=== PATIENT | female | born 1970 ===

== ENCOUNTER 2017-04-19 20:04 | Inpatient (IN) | payer MEDICAID ==
[2017-04-19 20:04] VITALS: BMI 43.0
[2017-04-19] MEDS ORDERED: Sodium Chloride 0.9% 1,000 ML IV ONE (20:28)
--- NOTE | 2017-04-19 20:31 | C.PDOC ---
History Of Present Illness Patient is a 47 y/o female that presents to the emergency department for evaluation of RUQ abdominal pain associated with nausea, and vomiting for the last 2 days. Patient states that she was scheduled for gallbladder surgery but surgery was delayed. Otherwise, denies fever, or any other complaints at this time. Time Seen by Provider: 04/19/17 20:11 Chief Complaint (Nursing): Abdominal Pain History Per: Patient History/Exam Limitations: no limitations Current Symptoms Are (Timing): Still Present Location Of Pain/Discomfort: RUQ Radiation Of Pain To:: None Quality Of Discomfort: "Pain" Associated Symptoms: Nausea, Vomiting. denies: Fever, Chills, Diarrhea, Loss Of Appetite, Back Pain, Chest Pain, Constipation, Urinary Symptoms Exacerbating Factors: None Alleviating Factors: None Recent travel outside of the [place]: No Additional History Per: Patient Abnormal Vaginal Bleeding: No Past Medical History Reviewed: Historical Data, Nursing Documentation, Vital Signs Vital Signs: Last Vital Signs Temp 98.6 F 04/19/17 20:07 Pulse 86 04/19/17 20:07 Resp 16 04/19/17 20:07 BP 118/78 04/19/17 20:07 Pulse Ox 98 04/19/17 20:39 - Medical History PMH: Asthma (When she was young.), Bronchitis (3 years ago.), Hypercholesterolemia, Hypothyroidism Denies: Depression, Chronic Kidney Disease - [facility] Procedures INJECT/INFUSE ELECTROLYT (11/22/13) INJECT/INFUSE NEC (11/22/13) Family History: States: Unknown Family Hx - Social History Hx Tobacco Use: Yes Hx Alcohol Use: Yes (OCCASIONALLY) Hx Substance Use: No - Immunization History Hx Tetanus Toxoid Vaccination: No Hx Influenza Vaccination: No Review Of Systems Except As Marked, All Systems Reviewed And Found Negative. Constitutional: Negative for: Fever, Chills Gastrointestinal: Positive for: Nausea, Vomiting, Abdominal Pain. Negative for : Diarrhea, Constipation, Hematemesis Genitourinary: Negative for: Dysuria, Frequency, Hematuria Musculoskeletal: Negative for: Back Pain Skin: Negative for: Rash Physical Exam - Physical Exam Appears: Non-toxic, No Acute Distress, Other (morbidly obese) Skin: Normal Color, Warm, Dry Head: Atraumatic, Normacephalic Eye(s): bilateral: Normal Inspection Neck: Normal ROM, Supple Chest: Symmetrical Cardiovascular: Rhythm Regular, No Murmur Respiratory: Normal Breath Sounds, No Rales, No Rhonchi, No Wheezing Gastrointestinal/Abdominal: Soft, Tenderness (RUQ), No Guarding, No Rebound Extremity: Bilateral: Atraumatic, Normal ROM Neurological/Psych: Oriented x3, Normal Speech, Normal Cognition ED Course And Treatment - Laboratory Results Result Diagrams: 04/19/17 20:37 04/19/17 20:37 O2 Sat by Pulse Oximetry: 98 Pulse Ox Interpretation: Normal Progress Note: Blood work, urinalysis, abdomen ultrasound ordered and reviewed. Patient was treated with Morphine, Zofran, and IV fluids. Medical Decision Making Medical Decision Making: r/o cholecystitsi- labs imaging pendign 945: us shows wall thickening. noted luekocytosis. suspect acute jing. discussed withjaun zapata. resident advisor paged. states will discuss with dr velasquez. ara dosed. dr colon on blue list, advises to admit under dr woods (dr colon advises that he will update dr woods) Disposition - Disposition Disposition: HOSPITALIZED Disposition Time: 21:45 Condition: STABLE - Clinical Impression Clinical Impression: Cholecystitis - Scribe Statement The provider has reviewed the documentation as recorded by the Scribe Yasir English All medical record entries made by the Scribe were at my direction and personally dictated by me. I have reviewed the chart and agree that the record accurately reflects my personal performance of the history, physical exam, medical decision making, and the department course for this patient. I have also personally directed, reviewed, and agree with the discharge instructions and disposition. Decision To Admit - Pt Status Changed To: Hospital Disposition Of: Inpatient - Admit Certification Admit to Inpatient:: After my assessment, the patient will require hospitalization for at least two midnights. This is because of the severity of symptoms shown, intensity of services needed, and/or the medical risk in this patient being treated as an outpatient. - InPatient: Physician Admission Certification:: acute jing, needs or - . Bed Request Type: Regular Admitting Physician: José Miguel Woods Patient Diagnosis: Cholecystitis
[2017-04-19] MEDS ORDERED: Sodium Chloride 0.9% 1,000 ML ONE (20:35)
[2017-04-19] MEDS ORDERED: Morphine 4 MG/ML VIAL ONE (20:35)
[2017-04-19 20:43] LABS: BASO # 0.1 K/uL (0.0-0.2); BASO % 0.5 % (0.0-2.0); EOS # 0.5 K/uL (0.0-0.7); EOS % 3.6 % (0.0-4.0); HEMOGLOBIN 12.1 g/dL (11.0-16.0); LYMPH # 2.5 K/uL (1.0-4.3); LYMPH % 18.4 % (20.0-40.0); MEAN CELL VOLUME 74.7 fL (81.0-99.0); MEAN CORPUSCULAR HEMOGLOBIN 23.7 pg (27.0-31.0); MEAN CORPUSCULAR HGB CONC 31.8 g/dL (33.0-37.0); MEAN PLATELET VOLUME 7.9 fL (7.2-11.7); MONO # 0.9 K/uL (0.0-0.8); MONO % 6.3 % (0.0-10.0); NEUT # 9.7 K/uL (1.8-7.0); NEUT % 71.2 % (50.0-75.0); RBC 5.09 Mil/uL (3.80-5.20); RED CELL DISTRIBUTION WIDTH 17.4 % (11.5-14.5); WHITE BLOOD COUNT 13.6 K/uL (4.8-10.8)
[2017-04-19 20:51] LABS: ALBUMIN 4.3 g/dL (3.5-5.0); INR 1.2; PROTHROMBIN TIME 13.6 SECONDS (9.7-12.2)
[2017-04-19 20:53] LABS: GFR AFRICAN-AMERICAN > 60; GFR NON-AFRICAN AMERICAN > 60
[2017-04-19 20:54] LABS: ALT/SGPT 27 U/L (9-52); AST/SGOT 20 U/L (14-36); BLOOD UREA NITROGEN 15 mg/dL (7-17); CALCIUM 9.7 mg/dl (8.6-10.4); LIPASE 51 U/L (23-300)
[2017-04-19 20:57] LABS: HCG,QUALITATIVE URINE NEGATIVE (NEGATIVE)
[2017-04-19 20:59] LABS: SQUAMOUS EPITHIAL 7 /hpf (0-5); URINE AMORPHOUS SEDIMENT RARE /ul (<OCC); URINE BACTERIA OCC (<OCC); URINE BILIRUBIN NEGATIVE (NEGATIVE); URINE BLOOD 1+ (NEGATIVE); URINE CLARITY Hazy (Clear); URINE COLOR Yellow (YELLOW); URINE GLUCOSE (UA) NORMAL (Normal); URINE NITRATE NEGATIVE (NEGATIVE); URINE PROTEIN 1+ mg/dL (NEGATIVE); URINE UROBILINOGEN NORMAL mg/dL (0.2-1.0)
[2017-04-19 21:00] LABS: URINE LEUKOCYTE ESTERASE NEGATIVE Leu/uL (Negative)
--- NOTE | 2017-04-19 21:38 | US ---
EXAM: US Abdomen Complete CLINICAL HISTORY: 47 years old, female; Pain; Abdominal pain; Other: Ruq pain; Additional info: Abd pain TECHNIQUE: Real-time ultrasound of the abdomen (complete) with image documentation. COMPARISON: No relevant prior studies available. FINDINGS: Liver: Fatty infiltration. No mass. No intrahepatic ductal dilatation. Gallbladder: Gallstone. Up to 0.37 cm wall thickness. No pericholecystic fluid. No sonographic Peterson's sign. Common bile duct: No dilatation. No stones. Pancreas: Unremarkable as visualized. Kidneys: Normal echogenicity. No hydronephrosis. Spleen: No splenomegaly. Aorta: Unremarkable as visualized. No aneurysm. Inferior vena cava: Unremarkable. IMPRESSION: 1. Cholelithiasis with mild gallbladder wall thickening. Clinical correlation is needed. 2. Incidental/non-acute findings are described above.
[2017-04-19] MEDS ORDERED: Piperacillin/Tazobact 3.375 gm 100 ML IVPB STA (21:39)
[2017-04-19] MEDS ORDERED: Piperacillin/Tazobact 3.375 gm 100 ML IVPB ONE (22:10)
[2017-04-19] MEDS ORDERED: HYDROmorphone 1 mg/ml ISec IVP PRN (22:11)
[2017-04-19] MEDS ORDERED: Albuterol HFA 90 mcg/actuation (8 g) IH PRN (22:20)
[2017-04-19] MEDS ORDERED: Albuterol 0.083% Inhal Sol (2.5 mg/3 mL) UD IH PRN (22:20)
[2017-04-19] MEDS: Sodium Chloride 0.45% 1,000 ML IV SCH (22:44)
--- NOTE | 2017-04-19 23:10 | CP.PCM.CON ---
History of Present Illness - History of Present Illness History of Present Illness: Surgery Consult note. Dr. Gibson CC: Abdominal Pain 47yo F with PMHx of Hypothyroid, HLD, DM, Asthma here for evaluation of abdominal pain. Patient states that she has had similar abdominal pain in the past for the past year, off and on, however, this episode has been the most severe. Pain is described as sharp, located in the RUQ, radiates to left upper abdomen, left breast and left middle back. This episode has been ongoing for the past 4 days, progressively worsening. She also c/o subjective fevers and chills at home. Pain is worse with food intake (Burger/Meat) and is associated with nausea and vomiting (non bilious, non bloody). She states that she last ate food 2 hours prior to arrival to the [facility] ED. She denies any urinary symptoms. No CP/SOB. No Headache. No changes in bowel habits. Of note, She was seen at [facility] for similar complaints on 04/13. At that time, she obtained a Abd US which showed large gallstone, no pericholecystic fluid. She also obtained a HIDA at that time with no evidence of cystic duct obstruction. She was asked to follow up with Dr. Townsend for elective outpatient cholecystectomy. PMHx: Hypothyroidism, HLD, DM, Asthma PSHx: x2; Partial removal of cervix due abnormal PAP Family Hx: CAD/OR maternal grandmother Social Hx: Former tobacco use, quit 1 year ago. Rare ETOH use. Denies illicit drug use. Currently unemployed NKDA Review of Systems - Review of Systems All systems: reviewed and no additional remarkable complaints except - Constitutional Constitutional: Chills, Fever - EENT Eyes: absent: Change in Vision Ears: absent: Dizziness - Cardiovascular Cardiovascular: absent: Chest Pain, Dyspnea - Respiratory Respiratory: absent: Cough - Gastrointestinal Gastrointestinal: Abdominal Pain, Nausea, Vomiting. absent: Diarrhea - Genitourinary Genitourinary: absent: Dysuria - Musculoskeletal Musculoskeletal: Back Pain - Neurological Neurological: absent: Dizziness, Weakness Past Patient History - Infectious Disease Hx of Infectious Diseases: None - Tetanus Immunizations Tetanus Immunization: Unknown - Past Medical History & Family History Past Medical History?: Yes Past Family History: Reviewed and not pertinent - Past Social History Smoking Status: Former Smoker - CARDIAC Hx Hypercholesterolemia: Yes - PULMONARY Hx Asthma: Yes (When she was young.) Hx Bronchitis: Yes (3 years ago.) - NEUROLOGICAL Hx Neurological Disorder: No - HEENT Hx HEENT Problems: No - RENAL Hx Chronic Kidney Disease: No - ENDOCRINE/METABOLIC Hx Hypothyroidism: Yes - HEMATOLOGICAL/ONCOLOGICAL Hx Blood Transfusions: No - INTEGUMENTARY Hx Dermatological Problems: No - MUSCULOSKELETAL/RHEUMATOLOGICAL Hx Back Pain: Yes (Low back pain.) Hx Falls: No - GASTROINTESTINAL Hx Gastrointestinal Disorders: Yes Hx Gastroesophageal Reflux: Yes - GENITOURINARY/GYNECOLOGICAL Hx Genitourinary Disorders: No - PSYCHIATRIC Hx Depression: No Hx Substance Use: No - SURGICAL HISTORY Hx Surgeries: No - ANESTHESIA Hx Anesthesia Reactions: No Hx Malignant Hyperthermia: No Meds Allergies/Adverse Reactions: Allergies Allergy/AdvReac Type Severity Reaction Status Date / Time No Known Allergies Allergy Verified 04/19/17 20:10 - Medications Medications: Current Medications Albuterol (Ventolin Hfa 90 Mcg/Actuation (8 G)) 2 puff IH RQ6 PRN PRN Reason: SOB Albuterol Sulfate (Albuterol 0.083% Inhal Homa (2.5 Mg/3 Ml) Ud) 2.5 mg IH RQ6 PRN PRN Reason: Wheezing Hydromorphone HCl (Dilaudid) 1 mg IVP Q4H PRN PRN Reason: Pain, moderate (4-7) Piperacillin Sod/Tazobactam (Sod 3.375 gm/ Sodium Chloride) 100 mls @ 200 mls/ hr IVPB Q6H [facility] Sodium Chloride (Sodium Chloride 0.45%) 1,000 mls @ 60 mls/hr IV .[id number] [facility] Last Admin: 04/19/17 22:44 Dose: 60 mls/hr Insulin Aspart (Novolog) 0 unit SC ACHS [facility] PRN Reason: Protocol Ondansetron HCl (Zofran Inj) 4 mg IVP Q4 PRN PRN Reason: nausea and vomiting Rosuvastatin Calcium (Crestor) 20 mg PO HS [facility] Physical Exam - Constitutional Appears: Well, No Acute Distress - Head Exam Head Exam: ATRAUMATIC, NORMAL INSPECTION, NORMOCEPHALIC - Eye Exam Eye Exam: EOMI - ENT Exam ENT Exam: Mucous Membranes Moist - Respiratory Exam Respiratory Exam: NORMAL BREATHING PATTERN - GI/Abdominal Exam GI & Abdominal Exam: Soft. absent: Distended, Firm, Guarding, Mass, Rebound, Rigid Additional comments: RUQ tenderness to deep palpation. Negative Peterson's sign. No distention, no rebound, no guarding. - Extremities Exam Extremities exam: Positive for: normal inspection. Negative for: calf tenderness, pedal edema - Neurological Exam Neurological exam: Alert, Oriented x3 - Psychiatric Exam Psychiatric exam: Normal Affect, Normal Mood - Skin Skin Exam: Dry, Intact, Normal Color, Warm Results - Vital Signs Recent Vital Signs: Last Vital Signs Temp 98.8 F 04/19/17 22:54 Pulse 89 04/19/17 22:54 Resp 20 04/19/17 22:54 BP 114/58 L 04/19/17 22:54 Pulse Ox 97 04/19/17 22:54 - Labs Result Diagrams: 04/19/17 20:37 04/19/17 20:37 Assessment & Plan - Assessment and Plan (Free Text) Assessment: 47yo F with PMHx of Hypothyroidism, HLD, DM, Asthma here with symptomatic cholelithiasis - Abd US: Large Gallstone at GB neck. GB wall 0.37cm. No pericholecystic fluid - NPO past midnight - Pain management - Continue Abx/IVF - f/u AM labs - To OR Tuesday (04/20) Further recs as per Dr. Arthur Townsend PGY1
[2017-04-19] MEDS: Piperacillin/Tazobact 3.375 GM in Sodium Chloride 100 ML IVPB SCH (23:50)
[2017-04-20] MEDS: Piperacillin/Tazobact 3.375 GM in Sodium Chloride 100 ML IVPB SCH ×4 (04:36→23:16)
[2017-04-20] MEDS: Morphine 4 MG/ML VIAL IVP PRN ×2 (07:01→11:29)
[2017-04-20 07:20] LABS: BASO % 0.4 % (0.0-2.0); EOS # 0.5 K/uL (0.0-0.7); EOS % 4.3 % (0.0-4.0); HEMOGLOBIN 10.6 g/dL (11.0-16.0); LYMPH # 2.2 K/uL (1.0-4.3); MEAN CORPUSCULAR HEMOGLOBIN 23.5 pg (27.0-31.0); MEAN CORPUSCULAR HGB CONC 30.9 g/dL (33.0-37.0); MEAN PLATELET VOLUME 8.2 fL (7.2-11.7); MONO # 0.9 K/uL (0.0-0.8); NEUT # 7.9 K/uL (1.8-7.0); NEUT % 68.3 % (50.0-75.0); RBC 4.51 Mil/uL (3.80-5.20); WHITE BLOOD COUNT 11.6 K/uL (4.8-10.8)
[2017-04-20 07:29] LABS: ALBUMIN 3.7 g/dL (3.5-5.0)
[2017-04-20 07:32] LABS: AST/SGOT 29 U/L (14-36); GFR AFRICAN-AMERICAN > 60; GFR NON-AFRICAN AMERICAN > 60
[2017-04-20 07:33] LABS: ALB/GLOB RATIO 1.1 (1.0-2.1); ALT/SGPT 37 U/L (9-52); BLOOD UREA NITROGEN 13 mg/dL (7-17)
--- NOTE | 2017-04-20 08:40 | RAD ---
HISTORY: preop COMPARISON: No prior. FINDINGS: LUNGS: No focal infiltrate or effusion. Mild venous congestion. Right infrahilar prominence may represent prominent vasculature. PLEURA: No significant pleural effusion identified, no pneumothorax apparent. CARDIOVASCULAR: Normal. OSSEOUS STRUCTURES: No significant abnormalities. VISUALIZED UPPER ABDOMEN: Normal. OTHER FINDINGS: None. IMPRESSION: No focal infiltrate or effusion. Mild venous congestion. Right infrahilar prominence may represent prominent vasculature.
[2017-04-20] MEDS: (Novolog) Insulin Aspart, Recombinant 100 u/ml 10 ml vial SC SCH ×4 (08:49→21:02)
--- NOTE | 2017-04-20 09:29 | CP.PCM.CON ---
History of Present Illness - History of Present Illness History of Present Illness: CC RUQ pain HPI Patient is a 47 y/o female that presents to the emergency department for evaluation of RUQ abdominal pain associated with nausea, and vomiting for the last 2 days. Patient states that she was scheduled for gallbladder surgery but surgery was delayed. Otherwise, denies fever, or any other complaints at this time. Review of Systems - Gastrointestinal Gastrointestinal: Abdominal Pain, Vomiting Past Patient History - Infectious Disease Hx of Infectious Diseases: None - Tetanus Immunizations Tetanus Immunization: Unknown - Past Medical History & Family History Past Medical History?: Yes Past Family History: Reviewed and not pertinent - Past Social History Smoking Status: Former Smoker - CARDIAC Hx Hypercholesterolemia: Yes - PULMONARY Hx Asthma: Yes (When she was young.) Hx Bronchitis: Yes (3 years ago.) - NEUROLOGICAL Hx Neurological Disorder: No - HEENT Hx HEENT Problems: No - RENAL Hx Chronic Kidney Disease: No - ENDOCRINE/METABOLIC Hx Hypothyroidism: Yes - HEMATOLOGICAL/ONCOLOGICAL Hx Blood Transfusions: No - INTEGUMENTARY Hx Dermatological Problems: No - MUSCULOSKELETAL/RHEUMATOLOGICAL Hx Back Pain: Yes (Low back pain.) Hx Falls: No - GASTROINTESTINAL Hx Gastrointestinal Disorders: Yes Hx Gastroesophageal Reflux: Yes - GENITOURINARY/GYNECOLOGICAL Hx Genitourinary Disorders: No - PSYCHIATRIC Hx Depression: No Hx Substance Use: No - SURGICAL HISTORY Hx Surgeries: No - ANESTHESIA Hx Anesthesia Reactions: No Hx Malignant Hyperthermia: No Meds Allergies/Adverse Reactions: Allergies Allergy/AdvReac Type Severity Reaction Status Date / Time No Known Allergies Allergy Verified 04/19/17 20:10 - Medications Medications: Current Medications Albuterol (Ventolin Hfa 90 Mcg/Actuation (8 G)) 2 puff IH RQ6 PRN PRN Reason: SOB Albuterol Sulfate (Albuterol 0.083% Inhal Homa (2.5 Mg/3 Ml) Ud) 2.5 mg IH RQ6 PRN PRN Reason: Wheezing Piperacillin Sod/Tazobactam (Sod 3.375 gm/ Sodium Chloride) 100 mls @ 200 mls/ hr IVPB Q6H [facility] Last Admin: 04/20/17 04:36 Dose: 200 mls/hr Sodium Chloride (Sodium Chloride 0.45%) 1,000 mls @ 60 mls/hr IV .[id number] [facility] Last Admin: 04/19/17 22:44 Dose: 60 mls/hr Insulin Aspart (Novolog) 0 unit SC ACHS [facility] PRN Reason: Protocol Last Admin: 04/20/17 08:49 Dose: Not Given Morphine Sulfate (Morphine) 4 mg IVP Q4 PRN PRN Reason: Pain, moderate (4-7) Last Admin: 04/20/17 07:01 Dose: 4 mg Ondansetron HCl (Zofran Inj) 4 mg IVP Q4 PRN PRN Reason: nausea and vomiting Pneumococcal Polyvalent Vaccine (Pneumovax 23 Vaccine) 0.5 ml IM .ONCE ONE Stop: 04/22/17 10:01 Rosuvastatin Calcium (Crestor) 20 mg PO HS [facility] Physical Exam - Head Exam Head Exam: NORMAL INSPECTION - Eye Exam Eye Exam: absent: Scleral icterus - ENT Exam ENT Exam: Mucous Membranes Moist - Neck Exam Neck exam: Positive for: Full Rom - Respiratory Exam Respiratory Exam: NORMAL BREATHING PATTERN - Cardiovascular Exam Cardiovascular Exam: REGULAR RHYTHM - GI/Abdominal Exam GI & Abdominal Exam: Soft. absent: Tenderness - Extremities Exam Extremities exam: Negative for: calf tenderness, pedal edema, tenderness Results - Vital Signs Recent Vital Signs: Last Vital Signs Temp 98.1 F 04/20/17 08:02 Pulse 79 04/20/17 08:02 Resp 20 04/20/17 08:02 BP 115/69 04/20/17 08:02 Pulse Ox 95 04/20/17 08:02 - Labs Result Diagrams: 04/20/17 07:01 04/20/17 07:01 Labs: Laboratory Results - last 24 hr 04/19/17 04/20/17 04/20/17 22:40 03:00 07:01 WBC 11.6 H RBC 4.51 Hgb 10.6 L Hct 34.3 MCV 76.0 L MCH 23.5 L MCHC 30.9 L RDW 18.0 H Plt Count 414 H MPV 8.2 Neut % (Auto) 68.3 Lymph % (Auto) 19.0 L [place] % (Auto) 8.0 Eos % (Auto) 4.3 H Baso % (Auto) 0.4 Neut # 7.9 H Lymph # 2.2 [place] # 0.9 H Eos # 0.5 Baso # 0.0 Sodium Potassium Chloride Carbon Dioxide Anion Gap BUN Creatinine Est GFR ( Amer) Est GFR (Non-Af Amer) POC Glucose (mg/dL) 117 H 97 Random Glucose Calcium Total Bilirubin AST ALT Alkaline Phosphatase Total Protein Albumin Globulin Albumin/Globulin Ratio 04/20/17 04/20/17 07:01 07:04 WBC RBC Hgb Hct MCV MCH MCHC RDW Plt Count MPV Neut % (Auto) Lymph % (Auto) [place] % (Auto) Eos % (Auto) Baso % (Auto) Neut # Lymph # [place] # Eos # Baso # Sodium 140 Potassium 4.1 Chloride 101 Carbon Dioxide 26 Anion Gap 17 BUN 13 Creatinine 0.8 Est GFR ( Amer) > 60 Est GFR (Non-Af Amer) > 60 POC Glucose (mg/dL) 97 Random Glucose 91 Calcium 9.0 Total Bilirubin 0.7 AST 29 ALT 37 Alkaline Phosphatase 122 Total Protein 7.0 Albumin 3.7 Globulin 3.4 Albumin/Globulin Ratio 1.1 Assessment & Plan - Assessment and Plan (Free Text) Assessment: Cholelithiasis w/ Acute cholecystitis T2dm Plan: Pt is medically clear to go cholecystectomy
--- NOTE | 2017-04-20 12:12 | CARD ---
APPROVED REPORT EKG Measurement Heart [id number] <Conclusion> Normal sinus rhythm Normal ECG
--- NOTE | 2017-04-20 12:15 | CP.PCM.HP ---
History of Present Illness - History of Present Illness History of Present Illness: Patient is a 47 y/o female that presents to the emergency department for evaluation of RUQ abdominal pain associated with nausea, and vomiting for the last 2 days. Patient states that she was scheduled for gallbladder surgery but surgery was delayed. Otherwise, denies fever, or any other complaints at this time. - Medical History PMH: Asthma (When she was young.), Bronchitis (3 years ago.), Hypercholesterolemia, Hypothyroidism Denies: Depression, Chronic Kidney Disease Present on Admission - Present on Admission Any Indicators Present on Admission: No History of DVT/PE: No History of Uncontrolled Diabetes: No Urinary Catheter: No Decubitus Ulcer Present: No History Surgical Site Infection Following: None Review of Systems - Review of Systems All systems: reviewed and no additional remarkable complaints except - Constitutional Constitutional: As Per HPI - EENT Eyes: absent: As Per HPI, Blind Spots, Blurred Vision, Change in Vision, Decreased Night Vision, Diplopia, Discharge, Dry Eye, Exophthalmos, Floaters, Irritation, Itchy Eyes, Loss of Peripheral Vision, Pain, Photophobia, Requires Corrective Lenses, Sees Flashes, Spots in Vision, Tunnel Vision, Other Visual Disturbances, Loss of Vision, Other Ears: absent: As Per HPI, Decreased Hearing, Ear Discharge, Ear Pain, Tinnitus, Abnormal Hearing, Disequilibrium, Dizziness, Other Nose/Mouth/Throat: absent: As Per HPI, Epistaxis, Nasal Congestion, Nasal Discharge, Nasal Obstruction, Nasal Trauma, Nose Pain, Post Nasal Drip, Sinus Pain, Sinus Pressure, Bleeding Gums, Change in Voice, Dental Pain, Dry Mouth, Dysphagia, Halitosis, Hoarsness, Lip Swelling, Mouth Lesions, Mouth Pain, Odynophagia, Sore Throat, Throat Swelling, Tongue Swelling, Facial Pain, Neck Pain, Neck Mass, Other - Breasts Breasts: absent: As Per HPI, Change in Shape, Mass, Pain, Nipple Discharge, Nipple Inversion, Skin Changes, Swelling, Other - Cardiovascular Cardiovascular: absent: As Per HPI, Acrocyanosis, Chest Pain, Chest Pain at Rest , Chest Pain with Activity, Claudication, Diaphoresis, Dyspnea, Dyspnea on Exertion, Edema, Irregular Heart Rhythm, Pain Radiating to Arm/Neck/Jaw, Leg Edema, Leg Ulcers, Lightheadedness, Orthopnea, Palpitations, Paroxysmal Nocturnal Dyspnea, Pedal Edema, Radiating Pain, Rapid Heart Rate, Slow Heart Rate, Syncope, Other - Respiratory Respiratory: absent: As Per HPI, Cough, Dyspnea, Hemoptysis, Dyspnea on Exertion , Wheezing, Snoring, Stridor, Pain on Inspiration, Chest Congestion, Excessive Mucous Production, Change in Mucous Color, Pain with Coughing, Other - Gastrointestinal Gastrointestinal: As Per HPI - Genitourinary Genitourinary: absent: As Per HPI, Change in Urinary Stream, Difficulty Urinating, Dysuria, Flank Pain, Hematuria, Pyuria, Nocturia, Urinary Incontinence, Urinary Frequency, Urinary Hesitance, Urinary Urgency, Voiding Freq/Small Amts, Freq UTI, Hx Renal/Bladder Calculi, Hx /Renal Surgery, Bladder Distension, Other - Reproductive: Female Reproductive:Female: absent: As Per HPI, Amenorrhea, Amenorrhea/ Control, Currently Menstual, Cycle <21 Days, Cycle >35 Days, Cycle Variable, Menses 1-7 Days, Menses >/= 8 Days, Menses Variable, Cycle > 4 Weeks Between, No Menses for 6 Months, Heavy Menses, Light Menses, Normal Menses, Spotting Between Cycles , S/P Hysterectomy, Menopausal, Post Menopausal, Premenarche, Abnormal Vaginal Bleeding, Dysmenorrhea, Dyspareunia, Genital Lesions, Genital Pruritis, Pelvic Pain, Prolapse Symptoms, Sexual Dysfunction, Vaginal Discharge, Vaginal Dryness , Vaginal Odor, Vaginal Pruritis, Other - Menstruation Menstruation: absent: As Per HPI, Amenorrhea, Amenorrhea/ Control, Currently Menstual, Cycle <21 Days, Cycle >35 Days, Cycle Variable, Menses 1-7 Days, Menses >/= 8 Days, Menses Variable, Cycle > 4 Weeks Between, No Menses for 6 Months, Heavy Menses, Light Menses, Normal Menses, Spotting Between Cycles , S/P Hysterectomy, Menopausal, Post Menopausal, Premenarche, Abnormal Vaginal Bleeding, Dysmenorrhea, Other - Musculoskeletal Musculoskeletal: absent: As Per HPI, Abnormal Gait, Arthralgias, Atrophy, Back Pain, Deformity, Joint Swelling, Limited Range of Motion, Loss of Height, Muscle Cramps, Muscle Weakness, Myalgias, Neck Pain, Numbness, Radiating Pain into Limb, Stiffness, Tingling, Other - Integumentary Integumentary: absent: As Per HPI, Acne, Alopecia, Bleeding Lesions, Change in Hair, Change in Nails, Change in Pigmentation, Changing Lesions, Dry Skin, Erythema, Furuncle, Hirsutism, Lesions, New Lesions, Non-Healing Lesions, Photosensitivity, Pruritus, Rash, Skin Pain, Skin Ulcer, Sores, Striae, Swelling , Unusual Bruising, Wounds, Jaundice, Other - Neurological Neurological: absent: As Per HPI, Abnormal Gait, Abnormal Hearing, Abnormal Movements, Abnormal Speech, Behavioral Changes, Burning Sensations, Confusion, Convulsions, Disequilibrium, Dizziness, Numbness, Focal Weakness, Frequent Falls , Headaches, Lack of Coordination, Loss of Vision, Memory Loss, Paresthesias, Radicular Pain, Restless Legs, Sensory Deficit, Syncope, Tingling, Tremor, Vertigo, Weakness, Other Visual Disturbances, Other - Psychiatric Psychiatric: absent: As Per HPI, Abnormal Sleep Pattern, Anhedonia, Anxiety, Auditory Hallucinations, Behavioral Changes, Change in Appetite, Change in Libido, Confusion, Depression, Difficulty Concentrating, Hallucinations, Homicidal Ideation, Hopelessness, Irritability, Memory Loss, Mood Swings, Panic Attacks, Paranoia, Suicidal Ideation, Visual Hallucinations, Tactile Hallucinations, Other - Endocrine Endocrine: absent: As Per HPI, Change in Body Appearance, Change in Libido, Cold Intolorance, Deepening of Voice, Excessive Sweating, Fatigue, Flushing, Heat Intolorance, Increase in Ring/Shoe/Hat Size, Palpitations, Polydipsia, Polyphagia, Polyuria, Other - Hematologic/Lymphatic Hematologic: absent: As Per HPI, Easy Bleeding, Easy Bruising, Lymphadenopathy, Other Past Patient History - Infectious Disease Hx of Infectious Diseases: None - Tetanus Immunizations Tetanus Immunization: Unknown - Past Medical History & Family History Past Medical History?: Yes Past Family History: Reviewed and not pertinent - Past Social History Smoking Status: Former Smoker - CARDIAC Hx Hypercholesterolemia: Yes - PULMONARY Hx Asthma: Yes (When she was young.) Hx Bronchitis: Yes (3 years ago.) - NEUROLOGICAL Hx Neurological Disorder: No - HEENT Hx HEENT Problems: No - RENAL Hx Chronic Kidney Disease: No - ENDOCRINE/METABOLIC Hx Hypothyroidism: Yes - HEMATOLOGICAL/ONCOLOGICAL Hx Blood Transfusions: No - INTEGUMENTARY Hx Dermatological Problems: No - MUSCULOSKELETAL/RHEUMATOLOGICAL Hx Back Pain: Yes (Low back pain.) Hx Falls: No - GASTROINTESTINAL Hx Gastrointestinal Disorders: Yes Hx Gastroesophageal Reflux: Yes - GENITOURINARY/GYNECOLOGICAL Hx Genitourinary Disorders: No - PSYCHIATRIC Hx Depression: No Hx Substance Use: No - SURGICAL HISTORY Hx Surgeries: No - ANESTHESIA Hx Anesthesia Reactions: No Hx Malignant Hyperthermia: No Meds Allergies/Adverse Reactions: Allergies Allergy/AdvReac Type Severity Reaction Status Date / Time No Known Allergies Allergy Verified 04/19/17 20:10 Physical Exam - Constitutional Appears: Non-toxic - Head Exam Head Exam: NORMOCEPHALIC - Eye Exam Eye Exam: PERRL. absent: Scleral icterus - ENT Exam ENT Exam: Mucous Membranes Dry, Normal External Ear Exam - Neck Exam Neck exam: Negative for: Lymphadenopathy - Respiratory Exam Respiratory Exam: Decreased Breath Sounds, Clear to Auscultation Bilateral - Cardiovascular Exam Cardiovascular Exam: REGULAR RHYTHM - GI/Abdominal Exam GI & Abdominal Exam: Diminished Bowel Sounds, Distended, Soft, Tenderness - Rectal Exam Rectal Exam: Deferred - Exam Exam: NORMAL INSPECTION - Extremities Exam Extremities exam: Positive for: pedal pulses present. Negative for: calf tenderness, pedal edema, tenderness - Back Exam Back exam: absent: CVA tenderness (L), CVA tenderness (R), paraspinal tenderness - Neurological Exam Neurological exam: Alert, CN II-XII Intact, Oriented x3, Reflexes Normal - Psychiatric Exam Psychiatric exam: Normal Mood - Skin Skin Exam: Dry Results - Vital Signs Recent Vital Signs: Last Vital Signs Temp 98.1 F 04/20/17 08:02 Pulse 79 04/20/17 08:02 Resp 20 04/20/17 08:02 BP 115/69 04/20/17 08:02 Pulse Ox 95 04/20/17 08:02 - Labs Result Diagrams: 04/20/17 07:01 04/20/17 07:01 Labs: Laboratory Results - last 24 hr 04/19/17 04/20/17 04/20/17 22:40 03:00 07:01 WBC 11.6 H RBC 4.51 Hgb 10.6 L Hct 34.3 MCV 76.0 L MCH 23.5 L MCHC 30.9 L RDW 18.0 H Plt Count 414 H MPV 8.2 Neut % (Auto) 68.3 Lymph % (Auto) 19.0 L [place] % (Auto) 8.0 Eos % (Auto) 4.3 H Baso % (Auto) 0.4 Neut # 7.9 H Lymph # 2.2 [place] # 0.9 H Eos # 0.5 Baso # 0.0 Sodium Potassium Chloride Carbon Dioxide Anion Gap BUN Creatinine Est GFR ( Amer) Est GFR (Non-Af Amer) POC Glucose (mg/dL) 117 H 97 Random Glucose Calcium Total Bilirubin AST ALT Alkaline Phosphatase Total Protein Albumin Globulin Albumin/Globulin Ratio 04/20/17 04/20/17 04/20/17 07:01 07:04 11:28 WBC RBC Hgb Hct MCV MCH MCHC RDW Plt Count MPV Neut % (Auto) Lymph % (Auto) [place] % (Auto) Eos % (Auto) Baso % (Auto) Neut # Lymph # [place] # Eos # Baso # Sodium 140 Potassium 4.1 Chloride 101 Carbon Dioxide 26 Anion Gap 17 BUN 13 Creatinine 0.8 Est GFR ( Amer) > 60 Est GFR (Non-Af Amer) > 60 POC Glucose (mg/dL) 97 92 Random Glucose 91 Calcium 9.0 Total Bilirubin 0.7 AST 29 ALT 37 Alkaline Phosphatase 122 Total Protein 7.0 Albumin 3.7 Globulin 3.4 Albumin/Globulin Ratio 1.1 Assessment & Plan (1) Cholecystitis Status: Acute - Assessment and Plan (Free Text) Assessment: stat surgoical consulkt Decision To Admit - Pt Status Changed To: Hospital Disposition Of: Inpatient - Admit Certification Admit to Inpatient:: After my assessment, the patient will require hospitalization for at least two midnights. This is because of the severity of symptoms shown, intensity of services needed, and/or the medical risk in this patient being treated as an outpatient. - InPatient: Physician Admission Certification:: certified. José Miguel Woods MD - . Bed Request Type: Regular Admitting Physician: Pee Faria
[2017-04-20] MEDS ORDERED: Iodixanol 320 MG/ML 200 ML BOTTLE IV ONE (12:54)
[2017-04-20] MEDS ORDERED: Lactated Ringer's 1,000 ML IV ONE ×2 (13:30)
[2017-04-20] MEDS ORDERED: Propofol 10 mg/ml Inj (20 ML) ONE (13:44)
[2017-04-20] MEDS ORDERED: Midazolam 2 MG/2 ML VIAL ONE (13:44)
[2017-04-20] MEDS ORDERED: Rocuronium 10 mg/ml (5 ml) ONE (14:04)
[2017-04-20] MEDS ORDERED: Succinylcholine Chloride 20 mg/ml Syr (5 ml) IV ONE (14:04)
[2017-04-20] MEDS ORDERED: Neostigmine Methylsulfate 3mg/3ml Syringe IV ONE (15:39)
--- NOTE | 2017-04-20 15:41 | PCM.SURG1 ---
Surgeon's Initial Post Op Note - Surgeon's Notes Surgeon: Dr. Gibson Clinical Nurse Specialist: Dr. Em, Dr. Aguila, Noemy. Doctor Brooklynn Type of Anesthesia: General Endo Pre-Operative Diagnosis: symptomatic cholelithiasis Operative Findings: see op report Post-Operative Diagnosis: same Operation Performed: laparoscopoic cholecystectomy with IOC Specimen/Specimens Removed: gallbladder Estimated Blood Loss: EBL {In ML}: 150 Blood Products Given: N/A Drains Used: No Drains Post-Op Condition: Good Date of Surgery/Procedure: 04/20/17 Time of Surgery/Procedure: 15:41
[2017-04-20] MEDS: HYDROmorphone 0.5 mg/0.5 ml ISec IVP PRN ×3 (15:58→16:30)
[2017-04-20] MEDS ORDERED: HYDROmorphone 0.5 mg/0.5 ml ISec ONE (15:58)
[2017-04-20 17:30] VITALS: RESP 20
[2017-04-20] MEDS: Oxycodone/Acetaminophen 5/325 mg Tab PO PRN ×2 (17:58→21:00)
[2017-04-20] MEDS: Sodium Chloride 0.45% 1,000 ML IV SCH (18:00)
--- NOTE | 2017-04-20 18:49 | CP.PCM.PN ---
Subjective - Date & Time of Evaluation Date of Evaluation: 04/20/17 Time of Evaluation: 08:00 - Subjective Subjective: less pain no fever Objective - Vital Signs/Intake and Output Vital Signs (last 24 hours): Temp Pulse Resp BP Pulse Ox 98.6 F 72 20 130/88 92 L 04/20/17 17:20 04/20/17 17:20 04/20/17 17:20 04/20/17 17:20 04/20/17 17:20 Intake and Output: 04/20/17 04/20/17 06:59 18:59 Intake Total 620 400 Balance 620 400 - Medications Medications: Current Medications Albuterol (Ventolin Hfa 90 Mcg/Actuation (8 G)) 2 puff IH RQ6 PRN PRN Reason: SOB Albuterol Sulfate (Albuterol 0.083% Inhal Homa (2.5 Mg/3 Ml) Ud) 2.5 mg IH RQ6 PRN PRN Reason: Wheezing Enoxaparin Sodium (Lovenox) 40 mg SC DAILY [facility] Piperacillin Sod/Tazobactam (Sod 3.375 gm/ Sodium Chloride) 100 mls @ 200 mls/ hr IVPB Q6H [facility] Last Admin: 04/20/17 17:52 Dose: 200 mls/hr Sodium Chloride (Sodium Chloride 0.45%) 1,000 mls @ 60 mls/hr IV .[id number] [facility] Last Admin: 04/20/17 18:00 Dose: 60 mls/hr Insulin Aspart (Novolog) 0 unit SC ACHS [facility]ID PRN Reason: Protocol Last Admin: 04/20/17 17:53 Dose: Not Given Ondansetron HCl (Zofran Inj) 4 mg IVP Q4 PRN PRN Reason: nausea and vomiting Last Admin: 04/20/17 12:24 Dose: 4 mg Oxycodone/Acetaminophen (Percocet 5/325 Mg Tab) 2 tab PO Q4H PRN PRN Reason: Pain, severe (8-10) Stop: 04/23/17 15:47 Last Admin: 04/20/17 17:58 Dose: 2 tab Oxycodone/Acetaminophen (Percocet 5/325 Mg Tab) 1 tab PO Q4H PRN PRN Reason: Pain, moderate (4-7) Stop: 04/23/17 15:48 Pneumococcal Polyvalent Vaccine (Pneumovax 23 Vaccine) 0.5 ml IM .ONCE ONE Stop: 04/22/17 10:01 Rosuvastatin Calcium (Crestor) 20 mg PO HS DAVID - Labs Labs: 04/20/17 07:01 04/20/17 07:01 PT 13.6 SECONDS (9.7-12.2) H 04/19/17 20:37 INR 1.2 04/19/17 20:37 APTT 32 SECONDS (21-34) 04/19/17 20:37 - Constitutional Appears: Non-toxic, Chronically Ill - Head Exam Head Exam: NORMOCEPHALIC - Eye Exam Eye Exam: PERRL. absent: Scleral icterus - ENT Exam ENT Exam: Mucous Membranes Dry, Normal External Ear Exam - Neck Exam Neck Exam: absent: Lymphadenopathy - Respiratory Exam Respiratory Exam: Decreased Breath Sounds - Cardiovascular Exam Cardiovascular Exam: REGULAR RHYTHM - GI/Abdominal Exam GI & Abdominal Exam: Distended, Soft - Rectal Exam Rectal Exam: Deferred - Exam Exam: NORMAL INSPECTION - Extremities Exam Extremities Exam: absent: Calf Tenderness, Pedal Edema - Back Exam Back Exam: absent: CVA tenderness (L), CVA tenderness (R) - Neurological Exam Neurological Exam: Alert, Awake, Oriented x3 - Psychiatric Exam Psychiatric exam: Normal Mood - Skin Skin Exam: Dry, Intact Assessment and Plan (1) Cholecystitis Status: Acute - Assessment and Plan (Free Text) Plan: cont iv rx pain meds possible d/c in am
[2017-04-20] MEDS ORDERED: Benzocaine/Menthol (Cepacol) Lozenge MT PRN (21:00)
[2017-04-21] MEDS: Oxycodone/Acetaminophen 5/325 mg Tab PO PRN ×4 (02:55→21:30)
--- NOTE | 2017-04-21 03:11 | OP ---
PROCEDURE DATE: 04/20/2017 PREOPERATIVE DIAGNOSIS: Acute cholecystitis. POSTOPERATIVE DIAGNOSIS: Acute cholecystitis. PROCEDURE: Laparoscopic cholecystectomy with C-arm cholangiogram. SURGEON: Denzel Gibson Jr., MD ASSISTANTS: Dr. Em and Dr. Crystal Sun. TYPE OF ANESTHESIA: General anesthesia. ANESTHESIA ADMINISTERED BY: Dr. Garcia. HISTORY: The patient is a 47-year-old woman with severe abdominal pain, admitted to the emergency room with elevated white count and normal liver function. Ultrasound confirmed presence of gallstones of the wall. FINDINGS: The cholangiogram carried out in the cystic duct, showed a nondilated duct, free flowing to the duodenum with visualization of hepatic radicles. There were some mild adhesions in the lower portion of the abdomen; apart from this, no significant intra-abdominal pathology. Liver was slightly fatty. DESCRIPTION OF PROCEDURE: The patient was given general anesthesia, intravenous antibiotics, and Venodyne boots were applied. Su trocar was inserted by were placed; the cystic duct and cystic artery and view of safety obtained. After this was obtained, the cholangiogram was carried out. The gallbladder was then removed from the field by cautery. Excellent hemostasis was obtained. All the fluid that had been used was suctioned out as much as we could. We inspected the hole at the umbilicus and closed this under direct vision using multiple sutures and devices, until it was airtight. The skin was then closed with subcuticular closure and Steri-Strips. Blood loss to the procedure was approximately 200 mL. There were no other operative complications. The patient tolerated the procedure well. Operation carried out was laparoscopic cholecystectomy with C-arm cholangiogram. Denzel Gibson Jr., MD cc: Dr. Woods and Dr. Batres.
[2017-04-21] MEDS: Piperacillin/Tazobact 3.375 GM in Sodium Chloride 100 ML IVPB SCH ×4 (04:30→21:23)
[2017-04-21 07:34] LABS: BASO % 0.1 % (0.0-2.0); EOS % 0.1 % (0.0-4.0); HEMOGLOBIN 10.7 g/dL (11.0-16.0); LYMPH # 1.4 K/uL (1.0-4.3); LYMPH % 9.5 % (20.0-40.0); MEAN CELL VOLUME 75.4 fL (81.0-99.0); MEAN CORPUSCULAR HEMOGLOBIN 23.4 pg (27.0-31.0); MEAN PLATELET VOLUME 8.3 fL (7.2-11.7); MONO # 0.8 K/uL (0.0-0.8); MONO % 5.1 % (0.0-10.0); NEUT # 12.7 K/uL (1.8-7.0); NEUT % 85.2 % (50.0-75.0); NRBC % 0.1 % (0.0-2.0); PLATELET COUNT 452 K/uL (130-400); RBC 4.55 Mil/uL (3.80-5.20); RED CELL DISTRIBUTION WIDTH 17.7 % (11.5-14.5); WHITE BLOOD COUNT 14.9 K/uL (4.8-10.8)
[2017-04-21] MEDS: Sodium Chloride 0.45% 1,000 ML IV SCH ×2 (07:50→16:26)
[2017-04-21 07:52] LABS: ALBUMIN 3.6 g/dL (3.5-5.0)
[2017-04-21 07:55] LABS: ALB/GLOB RATIO 1.1 (1.0-2.1); AST/SGOT 74 U/L (14-36); BLOOD UREA NITROGEN 11 mg/dL (7-17); GFR AFRICAN-AMERICAN > 60; GFR NON-AFRICAN AMERICAN > 60
[2017-04-21 07:56] LABS: ALT/SGPT 88 U/L (9-52); CALCIUM 9.2 mg/dl (8.6-10.4)
[2017-04-21] MEDS: (Novolog) Insulin Aspart, Recombinant 100 u/ml 10 ml vial SC SCH ×4 (08:02→21:27)
[2017-04-21 08:41] LABS: LYMPHOCYTE 15 % (20-40); MONOCYTE 2 % (0-10); NEUTROPHIL 83 % (50-75); TOTAL CELLS COUNTED 100
[2017-04-21 08:42] LABS: ANISOCYTOSIS SLIGHT; HYPOCHROMIC SLIGHT; OVALOCYTES SLIGHT; PLATELET ESTIMATE SLIGHTLY INCREASED (NORMAL); POIKILOCYTOSIS SLIGHT
[2017-04-21] MEDS: Enoxaparin 40 mg Syringe SC SCH (10:41)
--- NOTE | 2017-04-21 13:30 | RAD ---
PROCEDURE: Intraoperative Fluoroscopy. HISTORY: GALLBLADER STONE FINDINGS: Fluoroscopic assistance was provided for intraoperative cholangiogram. Total fluoroscopic time (continuous mode) utilized during the procedure: 19.2 seconds. Please refer to the operative
--- NOTE | 2017-04-21 13:47 | CP.PCM.PN ---
Subjective - Date & Time of Evaluation Date of Evaluation: 04/21/17 Time of Evaluation: 07:00 - Subjective Subjective: Patient seen and examined this AM at bedside. Patient reports pain around the incision site well controlled with current medication regimen, denies nausea, vomiting, fevers or chills. Tolerating regular diet, voiding freely. Patient had an asthma attack that was alleviated with duoneb treatments. Patient says that her SOB is much improved but that she would still like more treatments. Objective - Vital Signs/Intake and Output Vital Signs (last 24 hours): Temp Pulse Resp BP Pulse Ox 98.5 F 63 20 120/70 97 04/21/17 07:57 04/21/17 07:57 04/21/17 07:57 04/21/17 07:57 04/21/17 07:57 Intake and Output: 04/21/17 04/21/17 06:59 18:59 Intake Total 1460 Balance 1460 - Medications Medications: Current Medications Albuterol (Ventolin Hfa 90 Mcg/Actuation (8 G)) 2 puff IH RQ6 PRN PRN Reason: SOB Albuterol Sulfate (Albuterol 0.083% Inhal Homa (2.5 Mg/3 Ml) Ud) 2.5 mg IH RQ6 PRN PRN Reason: Wheezing Benzocaine/Menthol (Cepacol Sore Throat) 1 alexis MT Q2H PRN PRN Reason: Sore Throat Last Admin: 04/20/17 21:47 Dose: 1 alexis Enoxaparin Sodium (Lovenox) 40 mg SC DAILY [facility] Last Admin: 04/21/17 10:41 Dose: 40 mg Piperacillin Sod/Tazobactam (Sod 3.375 gm/ Sodium Chloride) 100 mls @ 200 mls/ hr IVPB Q6H [facility] Last Admin: 04/21/17 10:38 Dose: 200 mls/hr Sodium Chloride (Sodium Chloride 0.45%) 1,000 mls @ 60 mls/hr IV .[id number] [facility] Last Admin: 04/21/17 07:50 Dose: Not Given Insulin Aspart (Novolog) 0 unit SC ACHS DAVID PRN Reason: Protocol Last Admin: 04/21/17 12:28 Dose: 1 unit Ondansetron HCl (Zofran Inj) 4 mg IVP Q4 PRN PRN Reason: nausea and vomiting Last Admin: 04/20/17 12:24 Dose: 4 mg Oxycodone/Acetaminophen (Percocet 5/325 Mg Tab) 2 tab PO Q4H PRN PRN Reason: Pain, severe (8-10) Stop: 04/23/17 15:47 Last Admin: 04/21/17 07:34 Dose: 2 tab Oxycodone/Acetaminophen (Percocet 5/325 Mg Tab) 1 tab PO Q4H PRN PRN Reason: Pain, moderate (4-7) Stop: 04/23/17 15:48 Last Admin: 04/21/17 02:55 Dose: 1 tab Pneumococcal Polyvalent Vaccine (Pneumovax 23 Vaccine) 0.5 ml IM .ONCE ONE Stop: 04/22/17 10:01 Rosuvastatin Calcium (Crestor) 20 mg PO HS [facility]ID Last Admin: 04/20/17 21:46 Dose: 20 mg - Labs Labs: 04/21/17 07:15 04/21/17 07:15 PT 13.6 SECONDS (9.7-12.2) H 04/19/17 20:37 INR 1.2 04/19/17 20:37 APTT 32 SECONDS (21-34) 04/19/17 20:37 - Constitutional Appears: Well, Non-toxic, No Acute Distress - Head Exam Head Exam: ATRAUMATIC, NORMOCEPHALIC - Eye Exam Eye Exam: Normal appearance. absent: Conjunctival injection, Scleral icterus - ENT Exam ENT Exam: Mucous Membranes Moist, Normal Oropharynx - Respiratory Exam Respiratory Exam: NORMAL BREATHING PATTERN. absent: Accessory Muscle Use, Respiratory Distress - Cardiovascular Exam Cardiovascular Exam: RRR - GI/Abdominal Exam GI & Abdominal Exam: Distended, Soft, Tenderness (appropriate tenderness to palpation in the ) Additional comments: Surgical bandages c/d/i, no active bleeding or surrounding erythema - Extremities Exam Extremities Exam: absent: Calf Tenderness, Pedal Edema, Tenderness - Neurological Exam Neurological Exam: Alert, Awake, Oriented x3 - Psychiatric Exam Psychiatric exam: Normal Affect, Normal Mood - Skin Skin Exam: Dry, Normal Color, Warm Assessment and Plan - Assessment and Plan (Free Text) Assessment: 47F POD#1 s/p laparoscopic cholecystectomy afebrile, VSS tolerating regular diet, having bowel movements, ambulating and urinating freely , pain well controlled on PO pain meds Plan: -Patient is clear for discharge with follow up with Dr. Gibson in 2 weeks -Leave bandaids on tuesday, the steri-strips will fall off on their own -Patient may shower after bandaids removed, but do not soak incisions or apply ointment -Do not lift more than [address] Gibson clears the patient -Continue with current medical management per the primary team -Trend CBC -Regular diet -Analgesia, anti-emetics Discussed with Dr. Arthur Aguila, PGY2
--- NOTE | 2017-04-21 19:33 | CP.PCM.PN ---
Subjective - Date & Time of Evaluation Date of Evaluation: 04/21/17 Time of Evaluation: 08:00 - Subjective Subjective: c/o chest pain cough and SOB dr faria to evaluate Objective - Vital Signs/Intake and Output Vital Signs (last 24 hours): Temp Pulse Resp BP Pulse Ox 99.0 F 80 20 106/67 95 04/21/17 15:38 04/21/17 15:38 04/21/17 15:38 04/21/17 15:38 04/21/17 15:38 Intake and Output: 04/21/17 04/22/17 18:59 06:59 Intake Total 1020 Balance 1020 - Medications Medications: Current Medications Albuterol (Ventolin Hfa 90 Mcg/Actuation (8 G)) 2 puff IH RQ6 PRN PRN Reason: SOB Albuterol Sulfate (Albuterol 0.083% Inhal Homa (2.5 Mg/3 Ml) Ud) 2.5 mg IH RQ6 PRN PRN Reason: Wheezing Benzocaine/Menthol (Cepacol Sore Throat) 1 alexis MT Q2H PRN PRN Reason: Sore Throat Last Admin: 04/20/17 21:47 Dose: 1 alexis Enoxaparin Sodium (Lovenox) 40 mg SC DAILY [facility] Last Admin: 04/21/17 10:41 Dose: 40 mg Piperacillin Sod/Tazobactam (Sod 3.375 gm/ Sodium Chloride) 100 mls @ 200 mls/ hr IVPB Q6H [facility] Last Admin: 04/21/17 16:27 Dose: 200 mls/hr Sodium Chloride (Sodium Chloride 0.45%) 1,000 mls @ 60 mls/hr IV .[id number] [facility] Last Admin: 04/21/17 16:26 Dose: 60 mls/hr Insulin Aspart (Novolog) 0 unit SC ACHS DAVID PRN Reason: Protocol Last Admin: 04/21/17 16:31 Dose: Not Given Ondansetron HCl (Zofran Inj) 4 mg IVP Q4 PRN PRN Reason: nausea and vomiting Last Admin: 04/20/17 12:24 Dose: 4 mg Oxycodone/Acetaminophen (Percocet 5/325 Mg Tab) 2 tab PO Q4H PRN PRN Reason: Pain, severe (8-10) Stop: 04/23/17 15:47 Last Admin: 04/21/17 13:55 Dose: 2 tab Oxycodone/Acetaminophen (Percocet 5/325 Mg Tab) 1 tab PO Q4H PRN PRN Reason: Pain, moderate (4-7) Stop: 04/23/17 15:48 Last Admin: 04/21/17 02:55 Dose: 1 tab Pneumococcal Polyvalent Vaccine (Pneumovax 23 Vaccine) 0.5 ml IM .ONCE ONE Stop: 04/22/17 10:01 Rosuvastatin Calcium (Crestor) 20 mg PO HS [facility] Last Admin: 04/20/17 21:46 Dose: 20 mg - Labs Labs: 04/21/17 07:15 04/21/17 07:15 PT 13.6 SECONDS (9.7-12.2) H 04/19/17 20:37 INR 1.2 04/19/17 20:37 APTT 32 SECONDS (21-34) 04/19/17 20:37 - Constitutional Appears: Non-toxic, Chronically Ill - Head Exam Head Exam: NORMOCEPHALIC - Eye Exam Eye Exam: PERRL. absent: Scleral icterus - ENT Exam ENT Exam: Mucous Membranes Dry - Neck Exam Neck Exam: absent: Lymphadenopathy - Respiratory Exam Respiratory Exam: Decreased Breath Sounds, Rhonchi - Cardiovascular Exam Cardiovascular Exam: REGULAR RHYTHM, +S1, +S2 - GI/Abdominal Exam GI & Abdominal Exam: Distended, Soft. absent: Tenderness - Rectal Exam Rectal Exam: Deferred - Exam Exam: NORMAL INSPECTION - Extremities Exam Extremities Exam: absent: Pedal Edema - Back Exam Back Exam: absent: CVA tenderness (L), CVA tenderness (R) - Neurological Exam Neurological Exam: Alert, Awake, Oriented x3 - Psychiatric Exam Psychiatric exam: Depressed - Skin Skin Exam: Dry Assessment and Plan (1) Cholecystitis Status: Acute - Assessment and Plan (Free Text) Assessment: cont iv rx / wound care stat consult dr Faria
[2017-04-22] MEDS: Sodium Chloride 0.45% 1,000 ML IV SCH (00:30)
[2017-04-22] MEDS: Piperacillin/Tazobact 3.375 GM in Sodium Chloride 100 ML IVPB SCH ×2 (04:20→11:03)
[2017-04-22] MEDS: (Novolog) Insulin Aspart, Recombinant 100 u/ml 10 ml vial SC SCH ×2 (07:42→12:02)
--- NOTE | 2017-04-22 07:52 | CP.PCM.PN ---
Subjective - Date & Time of Evaluation Date of Evaluation: 04/22/17 Time of Evaluation: 07:15 - Subjective Subjective: General sx progress note for Dr. Steven Cruz, PGY-1 Pt S & E at bedside. Pt reports pain at surgical incision sites well controlled. Denies N/V/F/C. Tolerating regular diet. No SOB overnight. Objective - Vital Signs/Intake and Output Vital Signs (last 24 hours): Temp Pulse Resp BP Pulse Ox 98.4 F 84 20 91/60 L 96 04/21/17 23:49 04/21/17 23:49 04/21/17 23:49 04/21/17 23:49 04/21/17 23:49 Intake and Output: 04/22/17 04/22/17 06:59 18:59 Intake Total 1640 Balance 1640 - Medications Medications: Current Medications Albuterol (Ventolin Hfa 90 Mcg/Actuation (8 G)) 2 puff IH RQ6 PRN PRN Reason: SOB Albuterol Sulfate (Albuterol 0.083% Inhal Homa (2.5 Mg/3 Ml) Ud) 2.5 mg IH RQ6 PRN PRN Reason: Wheezing Last Admin: 04/21/17 20:38 Dose: 2.5 mg Benzocaine/Menthol (Cepacol Sore Throat) 1 alexis MT Q2H PRN PRN Reason: Sore Throat Last Admin: 04/20/17 21:47 Dose: 1 alexis Enoxaparin Sodium (Lovenox) 40 mg SC DAILY [facility] Last Admin: 04/21/17 10:41 Dose: 40 mg Piperacillin Sod/Tazobactam (Sod 3.375 gm/ Sodium Chloride) 100 mls @ 200 mls/ hr IVPB Q6H DAVID Last Admin: 04/22/17 04:20 Dose: 200 mls/hr Sodium Chloride (Sodium Chloride 0.45%) 1,000 mls @ 60 mls/hr IV .[id number] [facility] Last Admin: 04/22/17 00:30 Dose: Not Given Insulin Aspart (Novolog) 0 unit SC ACHS DAVID PRN Reason: Protocol Last Admin: 04/22/17 07:42 Dose: Not Given Ondansetron HCl (Zofran Inj) 4 mg IVP Q4 PRN PRN Reason: nausea and vomiting Last Admin: 04/20/17 12:24 Dose: 4 mg Oxycodone/Acetaminophen (Percocet 5/325 Mg Tab) 2 tab PO Q4H PRN PRN Reason: Pain, severe (8-10) Stop: 04/23/17 15:47 Last Admin: 04/21/17 13:55 Dose: 2 tab Oxycodone/Acetaminophen (Percocet 5/325 Mg Tab) 1 tab PO Q4H PRN PRN Reason: Pain, moderate (4-7) Stop: 04/23/17 15:48 Last Admin: 04/21/17 21:30 Dose: 1 tab Pneumococcal Polyvalent Vaccine (Pneumovax 23 Vaccine) 0.5 ml IM .ONCE ONE Stop: 04/22/17 10:01 Rosuvastatin Calcium (Crestor) 20 mg PO HS DAVID Last Admin: 04/21/17 21:23 Dose: 20 mg - Labs Labs: 04/21/17 07:15 04/21/17 07:15 PT 13.6 SECONDS (9.7-12.2) H 04/19/17 20:37 INR 1.2 04/19/17 20:37 APTT 32 SECONDS (21-34) 04/19/17 20:37 - Constitutional Appears: Non-toxic, No Acute Distress - Head Exam Head Exam: ATRAUMATIC, NORMAL INSPECTION, NORMOCEPHALIC - Eye Exam Eye Exam: EOMI, Normal appearance - ENT Exam ENT Exam: Mucous Membranes Moist - Neck Exam Neck Exam: Full ROM - Respiratory Exam Respiratory Exam: Clear to Ausculation Bilateral, NORMAL BREATHING PATTERN. absent: Wheezes - Cardiovascular Exam Cardiovascular Exam: REGULAR RHYTHM, +S1, +S2 - GI/Abdominal Exam GI & Abdominal Exam: Soft, Tenderness (over surgical sites), Normal Bowel Sounds. absent: Distended (obese), Firm, Guarding, Rigid, Mass Additional comments: Abdominal surgical sites x 3 - umbilicus, LUQ, epigastric; LUQ and epigastric dressings with scant sanguinous dried strike through. - Extremities Exam Extremities Exam: Normal Inspection. absent: Pedal Edema - Neurological Exam Neurological Exam: Alert, Awake, Oriented x3 - Psychiatric Exam Psychiatric exam: Normal Affect, Normal Mood - Skin Skin Exam: Dry, Intact, Normal Color, Warm Assessment and Plan - Assessment and Plan (Free Text) Assessment: 47F POD#2 s/p laparoscopic cholecystectomy Plan: Doing well overnight Cleared for d/c home w/follow up with Dr. Gibosn in 2 wks OK to remove bandaids after pt is at home today Steri-strips will fall off on their own, do not pull off Ok to shower, gently washing steri-stripes with soap and water Do not soak in water/bathtub/hot tub/go swimming/put lotion or ointment on them Avoid lifting anything heavier than 10lbs until cleared by Dr. Gibson Medical mgmt as per primary team Regular diet DW attending Nancy, PGY-1
[2017-04-22 08:36] LABS: BASO # 0.1 K/uL (0.0-0.2); BASO % 0.4 % (0.0-2.0); EOS # 0.2 K/uL (0.0-0.7); EOS % 1.6 % (0.0-4.0); HEMOGLOBIN 9.5 g/dL (11.0-16.0); LYMPH % 24.1 % (20.0-40.0); MEAN CELL VOLUME 75.5 fL (81.0-99.0); MEAN CORPUSCULAR HGB CONC 30.5 g/dL (33.0-37.0); MEAN PLATELET VOLUME 8.3 fL (7.2-11.7); MONO # 1.2 K/uL (0.0-0.8); NEUT % 63.9 % (50.0-75.0); NRBC % 0.1 % (0.0-2.0); RBC 4.11 Mil/uL (3.80-5.20); RED CELL DISTRIBUTION WIDTH 17.4 % (11.5-14.5); WHITE BLOOD COUNT 12.5 K/uL (4.8-10.8)
[2017-04-22 08:55] LABS: ALBUMIN 3.5 g/dL (3.5-5.0)
[2017-04-22 08:58] LABS: ALB/GLOB RATIO 1.1 (1.0-2.1); ALT/SGPT 66 U/L (9-52); AST/SGOT 39 U/L (14-36); BLOOD UREA NITROGEN 11 mg/dL (7-17); CALCIUM 8.7 mg/dl (8.6-10.4); GFR AFRICAN-AMERICAN > 60; GFR NON-AFRICAN AMERICAN > 60
[2017-04-22] MEDS ORDERED: Pneumococcal 23-Valent Vaccine IM ONE (10:00)
[2017-04-22] MEDS: Enoxaparin 40 mg Syringe SC SCH (11:01)
[2017-04-22] MEDS: Oxycodone/Acetaminophen 5/325 mg Tab PO PRN (11:23)
--- NOTE | 2017-04-22 15:30 | CP.PCM.PN ---
Subjective - Date & Time of Evaluation Date of Evaluation: 04/22/17 Time of Evaluation: 15:30 - Subjective Subjective: Alert, orientedx3, tolerating food, denies acute pain. Objective - Vital Signs/Intake and Output Vital Signs (last 24 hours): Temp Pulse Resp BP Pulse Ox 98.4 F 72 20 100/66 97 04/22/17 07:57 04/22/17 07:57 04/22/17 07:57 04/22/17 07:57 04/22/17 07:57 Intake and Output: 04/22/17 04/22/17 06:59 18:59 Intake Total 1640 1020 Balance 1640 1020 - Medications Medications: Current Medications Albuterol (Ventolin Hfa 90 Mcg/Actuation (8 G)) 2 puff IH RQ6 PRN PRN Reason: SOB Albuterol Sulfate (Albuterol 0.083% Inhal Homa (2.5 Mg/3 Ml) Ud) 2.5 mg IH RQ6 PRN PRN Reason: Wheezing Last Admin: 04/21/17 20:38 Dose: 2.5 mg Benzocaine/Menthol (Cepacol Sore Throat) 1 alexis MT Q2H PRN PRN Reason: Sore Throat Last Admin: 04/20/17 21:47 Dose: 1 alexis Enoxaparin Sodium (Lovenox) 40 mg SC DAILY [facility] Last Admin: 04/22/17 11:01 Dose: 40 mg Piperacillin Sod/Tazobactam (Sod 3.375 gm/ Sodium Chloride) 100 mls @ 200 mls/ hr IVPB Q6H [facility] Last Admin: 04/22/17 11:03 Dose: 200 mls/hr Insulin Aspart (Novolog) 0 unit SC ACHS [facility] PRN Reason: Protocol Last Admin: 04/22/17 12:02 Dose: Not Given Ondansetron HCl (Zofran Inj) 4 mg IVP Q4 PRN PRN Reason: nausea and vomiting Last Admin: 04/20/17 12:24 Dose: 4 mg Oxycodone/Acetaminophen (Percocet 5/325 Mg Tab) 2 tab PO Q4H PRN PRN Reason: Pain, severe (8-10) Stop: 04/23/17 15:47 Last Admin: 04/22/17 11:23 Dose: 2 tab Oxycodone/Acetaminophen (Percocet 5/325 Mg Tab) 1 tab PO Q4H PRN PRN Reason: Pain, moderate (4-7) Stop: 04/23/17 15:48 Last Admin: 04/21/17 21:30 Dose: 1 tab Rosuvastatin Calcium (Crestor) 20 mg PO HS DAVID Last Admin: 04/21/17 21:23 Dose: 20 mg - Labs Labs: 04/22/17 08:26 04/22/17 08:26 PT 13.6 SECONDS (9.7-12.2) H 04/19/17 20:37 INR 1.2 04/19/17 20:37 APTT 32 SECONDS (21-34) 04/19/17 20:37 Assessment and Plan - Assessment and Plan (Free Text) Assessment: Patient is seen and examined, S/P LAP cholecystectomy. Alert and orientedx3, tolerating regular diet. Cleared by DR Michelle, d/w DR Woods, plan to discharge home today. Advised to f/u with DR Faria on Tuesday.Also to follow up with DR Michelle in 2 weeks as advised.
[2017-04-22 16:32] VITALS: BP 103/69; PULSE 70; TEMP 98.5; O2SAT 96
--- NOTE | 2017-04-22 17:13 | CP.PCM.DIS ---
Provider - Provider Date of Admission: 04/19/17 21:41 Attending physician: José Miguel Woods MD Primary care physician: dr woods Consults: dr ron colon Time Spent in preparation of Discharge (in minutes): 45 Diagnosis - Discharge Diagnosis (1) Cholecystitis Status: Acute Priority: High Onset Date: ~04/19/17 Hospital Course - Lab Results Lab Results: Micro Results 04/19/17 22:10 Blood-Venous Blood Culture - Preliminary NO GROWTH AFTER 48 HOURS 04/19/17 22:15 Blood-Venous Blood Culture - Preliminary NO GROWTH AFTER 48 HOURS 04/19/17 22:34 Urine Urine Culture - Final No Growth (<1,000 CFU/ML) Most Recent Lab Values WBC 12.5 K/uL (4.8-10.8) H 04/22/17 08:26 RBC 4.11 Mil/uL (3.80-5.20) 04/22/17 08:26 Hgb 9.5 g/dL (11.0-16.0) L 04/22/17 08:26 Hct 31.0 % (34.0-47.0) L 04/22/17 08:26 MCV 75.5 fL (81.0-99.0) L 04/22/17 08:26 MCH 23.0 pg (27.0-31.0) L 04/22/17 08:26 MCHC 30.5 g/dL (33.0-37.0) L 04/22/17 08:26 RDW 17.4 % (11.5-14.5) H 04/22/17 08:26 Plt Count 375 K/uL (130-400) 04/22/17 08:26 MPV 8.3 fL (7.2-11.7) 04/22/17 08:26 Neut % (Auto) 63.9 % (50.0-75.0) 04/22/17 08:26 Lymph % (Auto) 24.1 % (20.0-40.0) 04/22/17 08:26 [place] % (Auto) 10.0 % (0.0-10.0) 04/22/17 08:26 Eos % (Auto) 1.6 % (0.0-4.0) 04/22/17 08:26 Baso % (Auto) 0.4 % (0.0-2.0) 04/22/17 08:26 Neut # 8.0 K/uL (1.8-7.0) H 04/22/17 08:26 Lymph # 3.0 K/uL (1.0-4.3) 04/22/17 08:26 [place] # 1.2 K/uL (0.0-0.8) H 04/22/17 08:26 Eos # 0.2 K/uL (0.0-0.7) 04/22/17 08:26 Baso # 0.1 K/uL (0.0-0.2) 04/22/17 08:26 Neutrophils % (Manual) 83 % (50-75) H 04/21/17 07:15 Lymphocytes % (Manual) 15 % (20-40) L 04/21/17 07:15 Monocytes % (Manual) 2 % (0-10) 04/21/17 07:15 Platelet Estimate Slightly increased (NORMAL) H 04/21/17 07:15 Hypochromasia (manual) Slight 04/21/17 07:15 Poikilocytosis (manual Slight 04/21/17 07:15 Anisocytosis (manual) Slight 04/21/17 07:15 Ovalocytes Slight 04/21/17 07:15 PT 13.6 SECONDS (9.7-12.2) H 04/19/17 20:37 INR 1.2 04/19/17 20:37 APTT 32 SECONDS (21-34) 04/19/17 20:37 Sodium 135 mmol/L (132-148) 04/22/17 08:26 Potassium 3.8 mmol/L (3.6-5.2) 04/22/17 08:26 Chloride 101 mmol/L (98-107) 04/22/17 08:26 Carbon Dioxide 25 mmol/L (22-30) 04/22/17 08:26 Anion Gap 12 (10-20) 04/22/17 08:26 BUN 11 mg/dL (7-17) 04/22/17 08:26 Creatinine 0.7 MG/DL (0.7-1.2) 04/22/17 08:26 Est GFR ( Amer) > 60 04/22/17 08:26 Est GFR (Non-Af Amer) > 60 04/22/17 08:26 POC Glucose (mg/dL) 95 mg/dL (65-110) 04/22/17 16:10 Random Glucose 77 mg/dL (65-105) 04/22/17 08:26 Calcium 8.7 mg/dl (8.6-10.4) 04/22/17 08:26 Total Bilirubin 0.5 mg/dL (0.2-1.3) 04/22/17 08:26 AST 39 U/L (14-36) H D 04/22/17 08:26 ALT 66 U/L (9-52) H D 04/22/17 08:26 Alkaline Phosphatase 124 U/L (38-126) 04/22/17 08:26 Total Protein 6.8 g/dL (6.3-8.3) 04/22/17 08:26 Albumin 3.5 g/dL (3.5-5.0) 04/22/17 08:26 Globulin 3.2 gm/dL (2.2-3.9) 04/22/17 08:26 Albumin/Globulin Ratio 1.1 (1.0-2.1) 04/22/17 08:26 Lipase 51 U/L (23-300) 04/19/17 20:37 Urine Color Yellow (YELLOW) 04/19/17 20:37 Urine Clarity Hazy (Clear) 04/19/17 20:37 Urine pH 6.0 (5.0-8.0) 04/19/17 20:37 Ur Specific [place] 1.019 (1.003-1.030) 04/19/17 20:37 Urine Protein 1+ mg/dL (NEGATIVE) H 04/19/17 20:37 Urine Glucose (UA) Normal mg/dL (Normal) 04/19/17 20:37 Urine Ketones Negative mg/dL (NEGATIVE) 04/19/17 20:37 Urine Blood 1+ (NEGATIVE) H 04/19/17 20:37 Urine Nitrate Negative (NEGATIVE) 04/19/17 20:37 Urine Bilirubin Negative (NEGATIVE) 04/19/17 20:37 Urine Urobilinogen Normal mg/dL (0.2-1.0) 04/19/17 20:37 Ur Leukocyte Esterase Negative [place]/uL (Negative) 04/19/17 20:37 Urine WBC (Auto) 3 /hpf (0-5) 04/19/17 20:37 Urine RBC (Auto) 6 /hpf (0-3) H 04/19/17 20:37 Ur Squamous Epith Cells 7 /hpf (0-5) H 04/19/17 20:37 Ur Transition Epith Cell < 1 /hpf (0-3) 04/19/17 20:37 Amorphous Sediment Rare /ul (<OCC) H 04/19/17 20:37 Urine Bacteria Occ (<OCC) H 04/19/17 20:37 Urine HCG, Qual Negative (NEGATIVE) 04/19/17 20:37 - Hospital Course Hospital Course: went to or had cholecystectomy pain post op with some wheezing given bronchodilators with resolutuion Discharge Exam - Head Exam Head Exam: ATRAUMATIC, NORMAL INSPECTION, NORMOCEPHALIC - Eye Exam Eye Exam: PERRL Pupil Exam: NORMAL ACCOMODATION - ENT Exam ENT Exam: TM's Normal Bilaterally - Respiratory Exam Respiratory Exam: Clear to PA & Lateral - Cardiovascular Exam Cardiovascular Exam: REGULAR RHYTHM, +S1, +S2 - GI/Abdominal Exam GI & Abdominal Exam: Diminished Bowel Sounds, Distended, Soft, Tenderness - Rectal Exam Rectal Exam: Deferred - Exam Exam: NORMAL INSPECTION - Back Exam Back exam: absent: CVA tenderness (L), CVA tenderness (R) - Neurological Exam Neurological exam: Alert, CN II-XII Intact, Oriented x3, Reflexes Normal - Psychiatric Exam Psychiatric exam: Normal Mood - Skin Skin Exam: Dry, Intact Discharge Plan - Follow Up Plan Condition: STABLE Disposition: HOME/ ROUTINE Instructions: Cholecystitis (DC), Laparoscopic Cholecystectomy (DC) Additional Instructions: Please follow up with Dr. Gibson in 2 wks. OK to remove bandaids after pt is at home today Steri-strips will fall off on their own, do not pull off Ok to shower, gently washing steri-stripes with soap and water Do not soak in water/bathtub/hot tub/go swimming/put lotion or ointment on them Avoid lifting anything heavier than 10lbs until cleared by Dr. Gibson Ok to use Tylenol for pain at home Referrals: Pee Colon MD [Staff Provider] - José Miguel Woods MD [Staff Provider] - Denzel Gibson Jr., MD [Staff Provider] -
== END 2017-04-22 17:25 | disposition home or self-care (01) | DRG 494 ==
LOC: C.ER 20:04 → C.9E 21:41 → C.3T 22:15
PROVIDERS: ADMIT Internal Medicine; ATTEND Internal Medicine
PROC: BF131ZZ Fluoroscopy of Gallbladder and Bile Ducts using Low Osmolar Contrast (ICD-10-PCS; 2017-04-20)
PROC: 0FT44ZZ Resection of Gallbladder, Percutaneous Endoscopic Approach (ICD-10-PCS; principal; 2017-04-20 15:00)
DX: K80.00 Calculus of gallbladder with acute cholecystitis without obstruction (principal); E03.9 Hypothyroidism, unspecified; E78.00 Pure hypercholesterolemia, unspecified; E11.9 Type 2 diabetes mellitus without complications; Z79.4 Long term (current) use of insulin